=== PATIENT | female | born 1965 | race Caucasian/White ===

== ENCOUNTER → 2020-06-07 13:29 | Outpatient (CLI) | payer OTHER, SELFPAY ==
--- NOTE | ~2020-06-07 | DEXA_ITS ---
Bone Density Report Name: Aziza Medina Age: 55 Sex: Female Ethnicity: White Date of : 1965 Indication: postmenopausal; screening for osteoporosis; Referring Provider: GINGER, MARTHA Study: Bone densitometry was performed. Exam Date: June 07, 2020 Accession number: [id number] Bone Density: Region BMD T-score Z-score Classification AP Spine (L1-L4) 1.120 0.7 1.9 Normal Femoral Neck (Left) 0.840 -0.1 1.1 Normal Total Hip (Left) 0.965 0.2 1.0 Normal Femoral Neck (Right) 0.856 0.1 1.2 Normal Total Hip (Right) 0.978 0.3 1.1 Normal Total Hip Mean 0.972 0.3 1.1 Normal World Health Organization criteria for BMD impression classify patients as: Normal (T-score at or above -1.0), Osteopenia (T-score between -1.0 and -2.5), or Osteoporosis (T-score at or below -2.5). 10-year Fracture Risk: FRAX not reported because: All T-scores for Spine Total, Hip Total, Femoral Neck at or above -1.0 Previous Exams: Region Exam Age BMD T-score BMD Change BMD Change Date g/cm2 vs Baseline vs Previous AP Spine(L1-L4) 06/07/2020 55 1.120 0.7 -0.006 -0.006 03/26/2016 50 1.126 0.7 Total Hip(Left) 06/07/2020 55 0.965 0.2 0.021 0.021 03/26/2016 50 0.944 0.0 Total Hip(Right) 06/07/2020 55 0.978 0.3 -0.010 -0.010 03/26/2016 50 0.988 0.4 *Denotes significance at 95% confidence level, LSC for AP Spine = 0.022 g/cm2, LSC for Total Hip = 0.027 g/cm2 Clinical Information Provided by Patient: Has used the following medications: Vitamin D, MTV Patient maximum height was 64 No regular weight bearing exercise Does not regularly consume dairy products Drinks caffeinated beverages Onset of menses at age 9 Number of children 1 Impression: The patient has normal bone mass. No significant bone loss was observed. Discussion: BONE DENSITY IS ABOVE THE MINIMUM DESIRABLE LEVEL AT ALL SKELETAL SITES TESTED. This patient?s bone mineral density is above the minimum desirable level (T-score -1.0 or better) at all sites measured. The patient should follow a healthful lifestyle (good nutrition with adequate calcium and vitamin D, and appropriate weight-bearing exercise). Follow-Up: Consider repeating this study in 5 years or sooner if there is some new clinical indication. Reported by: ROBERTO on 06/07/2020 1:59:00 PM. Reviewed, dictated
--- NOTE | ~2020-06-07 | MM_ITS ---
EXAMINATION: MM screening dick BI w laure HISTORY: Screening mammogram TECHNIQUE: Craniocaudal and mediolateral oblique 3-D tomosynthesis images were obtained and synthetic 2-D images were generated. CAD analysis was submitted and interpreted. COMPARISON: 04/09/2018, 03/22/2016, 02/20/2015 bilateral digital screening mammogram examinations BREAST PARENCHYMAL COMPOSITION: There are scattered areas of fibroglandular density. FINDINGS: There is no evidence of suspicious mass, calcification, or architectural distortion to sug gest malignancy in either breast. There has been no suspicious interval change. IMPRESSION: 1. No mammographic evidence of malignancy. 2. Recommend routine screening mammography in one year. BI-RADS Category 1: Negative Reviewed, dictated and finalized at location A.
== END ==
PROVIDERS: Visit Provider Nurse Practitioner
DX: Z12.31 Encounter for screening mammogram for malignant neoplasm of breast (principal); Z78.0 Asymptomatic menopausal state
CPT/HCPCS: 77063; 77067; 77080

== ENCOUNTER 2021-01-23 00:16 | Day surgery (SDC) | payer OTHER, SELFPAY ==
[2021-01-08 15:48] VITALS: BMI 30.2
[2021-01-23 08:48] VITALS: BP 151/96; PULSE 118; RESP 18; TEMP 36.5; O2SAT 99; BMI 27.8
[2021-01-23] MEDS: LACTATED RINGERS 1,000 ML 150 ML IV CONT (09:15)
--- NOTE | 2021-01-23 09:41 | WPDANESEPPF ---
Anes - Initial Pre Proc Eval Procedure: Operation Date: 01/23/21 10:15 Proposed Procedures p Screening Colonoscopy - Bhavin Sandy MD Date/Time: 01/23/21 09:41 Surgeon: Bhavin Sandy MD Pre Op Diagnosis: neoplasm screening Patient Data Age: 55 Gender: F Height: 1.68 m Weight: 78.4 kg Last Vital Signs Temp 36.5 C 01/23/21 08:48 Pulse 118 H 01/23/21 08:48 Resp 18 01/23/21 08:48 BP 151/96 H 01/23/21 08:48 Pulse Ox 99 01/23/21 08:48 Allergies Allergy/AdvReac Type Severity Reaction Status Date / Time sesame oil Allergy Severe HIVES Verified 01/23/21 08:59 Home Medications Medication Instructions Recorded Confirmed Type B Complex 1 cap PO DAILY 01/08/21 01/23/21 History alprazolam 0.25 mg PO BID 01/08/21 01/23/21 History ascorbic acid (vitamin C) 500 mg PO DAILY 01/08/21 01/23/21 History atorvastatin 10 mg PO DAILY 01/08/21 01/23/21 History cetirizine 10 mg PO DAILY 01/08/21 01/23/21 History cholecalciferol (vitamin D3) 125 mcg PO DAILY 01/08/21 01/23/21 History [Vitamin D3] digestive enzymes 1 cap PO BID 01/08/21 01/23/21 History magnesium 500 mg PO BID 01/08/21 01/23/21 History sod picosulf-mag ox-citric ac 160 ml PO DAILY #160 ml 01/19/21 Rx [Clenpiq] sodium,potassium,mag sulfates See Rx Instructions .ROUTE 01/19/21 Rx [Suprep Bowel Prep Kit] .COMPLEX #1 pkg Patient hx anesthesia problems: none Family hx anesthesia problems: none Results Review: All pre-operative results and documents have been reviewed as part of the pre-operative evaluation. [facility] Past Medical History Medical History (Updated 01/23/21 @ 09:42 by Seth Acosta MD) Aftercare following surgery Mass on back Overweight Surgical History Surgical History (Updated 01/23/21 @ 09:42 by Seth Acosta MD) H/O colonoscopy History of carpal tunnel surgery Family History Family History Mother Diabetes mellitus Hypertension Family history of Parkinson's disease Family history of dementia Father Cerebrovascular accident Sibling Family history of malignant melanoma Family history of malignant neoplasm of cervix Other Family history of cardiovascular disease Social History Social History Smoking status: Never smoker Alcohol intake: current Substance use: never Substance use type: does not use Living arrangements: with family Spiritual care concerns: No Anes - Eval Final PreProcedure Day of Procedure 01/23/21 09:41 Patient weight: overweight Heart: regular rate and rhythm Lungs: clear to auscultation Airway: Mallampati scale class II Neurological: alert and oriented Last oral intake: >/= 8 hours ASA classification: II Emergent: no Anesthetic plan: proceed Anesthesia type and monitoring: general GIVS and standard monitoring Results Review: All pre-operative results and documents have been reviewed as part of the pre-operative evaluation. Informed Consent: The patient's anesthetic plan and its attendant risks and benefits were discussed with the patient/family/POA. Questions were solicited and answers provided to the satisfaction of the patient/family/POA.
--- NOTE | 2021-01-23 09:43 | WPDGICN ---
Assessment and Plan Assessment and plan (1) History of colon polyps: Code(s): Z86.010 - Personal history of colonic polyps Status: Acute Assessment and Plan: Patient has a personal history of colon polyps 5 years ago. For this reason surveillance exam recommended now on at least a 5 year intervals in the future. (2) Family history of colonic polyps: Code(s): Z83.71 - Family history of colonic polyps Status: Acute Assessment and Plan: Patient's family history is significant her father had colon polyps but she has many extended family members with colon cancer. Suggesting she has a familial trait. Plan is for colonoscopy at least every 5 years if not sooner for this reason. Further recommendations will be given after colonoscopy. GI Consult Note Consult date/time: 01/23/21 09:43 HPI: Aziza Urias is a 55 year old female Presents for screening colonoscopy. Patient reports that her current weight appetite bowel movements normal. She denies abdominal pain. She has had no bleeding. She has a very strong family history of colon polyps and cancer. Her father had colon polyps. She has an aunt and uncle with colon cancer as well as cousins. Patient herself had a colonoscopy 5 years ago that revealed colon polyps. She presents today for surveillance examination. Review of Systems Review of Systems: All systems reviewed & are unremarkable except as noted in HPI and below PMFSH Past Medical History Medical History (Updated 01/23/21 @ 09:45 by Bhavin Sandy MD) Aftercare following surgery Mass on back Overweight Surgical History Surgical History (Updated 01/23/21 @ 09:42 by Seth Acosta MD) H/O colonoscopy History of carpal tunnel surgery Family History Family History Mother Diabetes mellitus Hypertension Family history of Parkinson's disease Family history of dementia Father Cerebrovascular accident Sibling Family history of malignant melanoma Family history of malignant neoplasm of cervix Other Family history of cardiovascular disease Social History Social History Smoking status: Never smoker Alcohol intake: current Substance use: never Substance use type: does not use Living arrangements: with family Spiritual care concerns: No Meds Home Medications and Allergies Home Medications Medication Instructions Recorded Confirmed Type B Complex 1 cap PO DAILY 01/08/21 01/23/21 History alprazolam 0.25 mg PO BID 01/08/21 01/23/21 History ascorbic acid (vitamin C) 500 mg PO DAILY 01/08/21 01/23/21 History atorvastatin 10 mg PO DAILY 01/08/21 01/23/21 History cetirizine 10 mg PO DAILY 01/08/21 01/23/21 History cholecalciferol (vitamin D3) 125 mcg PO DAILY 01/08/21 01/23/21 History [Vitamin D3] digestive enzymes 1 cap PO BID 01/08/21 01/23/21 History magnesium 500 mg PO BID 01/08/21 01/23/21 History sod picosulf-mag ox-citric ac 160 ml PO DAILY #160 ml 01/19/21 Rx [Clenpiq] sodium,potassium,mag sulfates See Rx Instructions .ROUTE 01/19/21 Rx [Suprep Bowel Prep Kit] .COMPLEX #1 pkg Allergies Allergy/AdvReac Type Severity Reaction Status Date / Time sesame oil Allergy Severe HIVES Verified 01/23/21 08:59 Vital Signs Vital Signs - 24 hr 01/23/21 08:48 Temperature 97.7 F Pulse Rate 118 H Respiratory Rate 18 Blood Pressure 151/96 H Pulse Oximetry 99 Exam Narrative: Physical exam reveals patient to be alert. Vital signs stable. HEENT exam is unremarkable. Patient is anicteric. Lungs are clear to auscultation and percussion. Heart is without murmur or extra sounds. Abdominal exam bowel sounds are present soft nontender with no organomegaly. Digital external rectal exam is normal.
[2021-01-23 10:45] VITALS: BP 122/78; PULSE 103; RESP 27; O2SAT 98
[2021-01-23 10:55] VITALS: BP 121/85; PULSE 101; RESP 24; O2SAT 98
[2021-01-23 11:05] VITALS: BP 124/92; PULSE 96; RESP 24; O2SAT 98
== END 2021-01-23 11:21 | disposition home or self-care (01) ==
PROVIDERS: PCP Internal Medicine; Visit Provider Internal Medicine Gastroenterology
PROC: 0DJD8ZZ Inspection of Lower Intestinal Tract, Via Natural or Artificial Opening Endoscopic (ICD-10-PCS; CPT 45378; principal; 2021-01-23 10:15)
DX: Z12.11 Encounter for screening for malignant neoplasm of colon (principal); D12.2 Benign neoplasm of ascending colon; K64.8 Other hemorrhoids; Z80.0 Family history of malignant neoplasm of digestive organs; Z83.71 Family history of colonic polyps
CPT/HCPCS: 45380; 88305; J2704; J7120

== ENCOUNTER → 2021-06-11 15:15 | Outpatient (CLI) | payer OTHER, SELFPAY ==
--- NOTE | ~2021-06-11 | MM_ITS ---
EXAMINATION: MM screening dick BI w laure HISTORY: Screening mammogram TECHNIQUE: Craniocaudal and mediolateral oblique 3-D tomosynthesis images were obtained and synthetic 2-D images were generated. CAD analysis was submitted and interpreted. COMPARISON: , , 03/22/2016 bilateral screening mammogram examinations BREAST PARENCHYMAL COMPOSITION: There are scattered areas of fibroglandular density. FINDINGS: There is no evidence of suspicious mass, calcification, or architectural distortion to sugg est malignancy in either breast. There has been no suspicious interval change. IMPRESSION: 1. No mammographic evidence of malignancy. 2. Recommend routine screening mammography in one year. BI-RADS Category 1: Negative Reviewed, dictated and finalized at location A.
== END ==
PROVIDERS: PCP Internal Medicine; Visit Provider Nurse Practitioner
DX: Z12.31 Encounter for screening mammogram for malignant neoplasm of breast (principal)
CPT/HCPCS: 77063; 77067

== ENCOUNTER → 2022-09-11 14:14 | Outpatient (CLI) | payer OTHER, SELFPAY ==
--- NOTE | ~2022-09-11 | MM_ITS ---
EXAMINATION: MM screening dick BI w laure HISTORY: Screening mammogram TECHNIQUE: Craniocaudal and mediolateral oblique 3-D tomosynthesis images were obtained and synthetic 2-D images were generated. CAD analysis was submitted and interpreted. COMPARISON: No prior mammogram is available for comparison at this institution. BREAST PARENCHYMAL COMPOSITION: There are scattered areas of fibroglandular density. FINDINGS: There is no evidence of suspicious mass, calcification, or architectural distortion to sugg est malignancy in either breast. There has been no suspicious interval change. IMPRESSION: 1. No mammographic evidence of malignancy. 2. Recommend routine screening mammography in one year. BI-RADS Category 1: Negative Reviewed, dictated and finalized at location A.
== END ==
PROVIDERS: PCP Nurse Practitioner; Visit Provider Nurse Practitioner
DX: Z12.31 Encounter for screening mammogram for malignant neoplasm of breast (principal)
CPT/HCPCS: 77063; 77067

== ENCOUNTER 2023-09-15 07:29 | Outpatient (CLI) | payer OTHER, SELFPAY ==
--- NOTE | ~2023-09-15 | MM_ITS ---
EXAMINATION: MM screening dick BI w laure HISTORY: Screening TECHNIQUE: Craniocaudal and mediolateral oblique 3-D tomosynthesis images were obtained and synthetic 2-D images were generated. CAD analysis was submitted and interpreted. COMPARISON: Comparison to multiple prior studies sequentially, with oldest reviewed study dated 02/01. BREAST PARENCHYMAL COMPOSITION: Not dense: There are scattered areas of fibroglandular density. FINDINGS: There is no evidence of suspicious mass, calcification, or architectural distortion to sugg est malignancy in either breast. There has been no suspicious interval change. IMPRESSION: 1. No mammographic evidence of malignancy. 2. Recommend routine screening mammography in one year. BI-RADS Category 1: Negative Reviewed, dictated and finalized at location B.
== END 2023-09-15 07:30 ==
PROVIDERS: PCP Nurse Practitioner; Visit Provider Nurse Practitioner
DX: Z12.31 Encounter for screening mammogram for malignant neoplasm of breast (principal)
CPT/HCPCS: 77063; 77067

== ENCOUNTER 2023-12-31 15:39 | Outpatient (CLI) | payer OTHER, SELFPAY ==
--- NOTE | ~2023-12-31 | XR_ITS ---
EXAMINATION: XR chest 2V Exam Date/Time: 12/31/2023 15:55 CDT HISTORY: Persistent cough Comparison: None. RESULT: Lines, tubes, and devices: None. Lungs and pleura: Minimal right posterior costophrenic angle blunting, otherwise clear. Cardiomediastinal silhouette: Stable. Other: No acute osseous or upper abdominal finding. IMPRESSION: Trace right pleural fluid collection versus chronic pleural blunting. Reviewed, dictated and finalized at location K.
== END 2023-12-31 15:40 | disposition home or self-care (01) ==
LOC: CHSIMG 15:42
PROVIDERS: PCP Internal Medicine; Visit Provider Internal Medicine
DX: R05.9 Cough, unspecified (principal); R91.8 Other nonspecific abnormal finding of lung field
CPT/HCPCS: 71046

== ENCOUNTER 2024-09-29 12:21 | Outpatient (CLI) | payer OTHER, SELFPAY ==
--- NOTE | ~2024-09-29 | MM_ITS ---
EXAMINATION: MM screening dick BI w laure HISTORY: Screening TECHNIQUE: Craniocaudal and mediolateral oblique 3-D tomosynthesis images were obtained and synthetic 2-D images were generated. CAD analysis was submitted and interpreted. COMPARISON: Comparison to multiple prior studies sequentially, with oldest reviewed study dated 03/26. BREAST PARENCHYMAL COMPOSITION: Not dense: There are scattered areas of fibroglandular density. FINDINGS: There is no evidence of suspicious mass, calcification, or architectural distortion to sugg est malignancy in either breast. There has been no suspicious interval change. IMPRESSION: 1. No mammographic evidence of malignancy. 2. Recommend routine screening mammography in one year. BI-RADS Category 1: Negative Reviewed, dictated and finalized at location B.
--- NOTE | ~2024-09-29 | DEXA_ITS ---
Bone Density Report Name: ANAHI GANN Age: 59 Sex: Female Ethnicity: White Date of : 1965 Indication: postmenopausal; screening for osteoporosis; height loss; Referring Provider: GINGER, MARTHA Study: Bone densitometry was performed. Exam Date: September 29, 2024 Accession number: [id number] Bone Density: Region BMD T-score Z-score Classification AP Spine(L1-L4) 1.067 0.2 1.7 Normal Femoral Neck (Left) 0.805 -0.4 0.9 Normal Total Hip (Left) 0.922 -0.2 0.9 Normal Femoral Neck (Right) 0.793 -0.5 0.8 Normal Total Hip (Right) 0.926 -0.1 0.9 Normal Total Hip Mean 0.924 -0.2 0.9 Normal World Health Organization criteria for BMD impression classify patients as: Normal (T-score at or above -1.0), Osteopenia (T-score between -1.0 and -2.5), or Osteoporosis (T-score at or below -2.5). 10-year Fracture Risk: FRAX not reported because: All T-scores for Spine Total, Hip Total, Femoral Neck at or above -1.0 Previous Exams: -- Region Exam Age BMD T-score BMD Change BMD Change Date g/cm2 vs Baseline vs Previous -- AP Spine (L1-L4) 09/29/2024 59 1.067 0.2 -5.3%* -4.7%* 06/07/2020 55 1.120 0.7 -0.6% -0.6% 03/26/2016 50 1.126 0.7 Total Hip(Left) 09/29/2024 59 0.922 -0.2 -2.3% -4.4%* 06/07/2020 55 0.965 0.2 2.2% 2.2% 03/26/2016 50 0.944 0.0 Total Hip(Right) 09/29/2024 59 0.926 -0.1 -6.3%* -5.3%* 06/07/2020 55 0.978 0.3 -1.0% -1.0% 03/26/2016 50 0.988 0.4 -- *Denotes significance at 95% confidence level, LSC for AP Spine = 0.022 g/cm2, LSC for Total Hip = 0.027 g/cm2 Clinical Information Provided by Patient: Has used the following medications: Vitamin D Patient maximum height was 66 Menopause Age: 38 Drinks caffeinated beverages Onset of menses at age 10 Number of children 1 Missed period for more than 6 months in a row Impression: The patient has normal bone mass. The BMD for the AP Spine (L1-L4) decreased, changing by -4.7% since the last DXA exam. The BMD for the Total Hip(Left) decreased, changing by -4.4% since the last DXA exam. The BMD for the Total Hip(Right) decreased, changing by -5.3% since the last DXA exam. Discussion: BONE DENSITY IS ABOVE THE MINIMUM DESIRABLE LEVEL AT ALL SKELETAL SITES TESTED. This patient?s bone mineral density is above the minimum desirable level (T-score -1.0 or better) at all sites measured. The patient should follow a healthful lifestyle (good nutrition with adequate calcium and vitamin D, and appropriate weight-bearing exercise). Follow-Up: Consider repeating this study in 3 to 4 years to reassess this patient's status, or sooner if there is some new clinical indication. Reported by: MYRANDA on 09/29/2024 12:51:00 PM. Reviewed, dictated and finalized at location A.
== END 2024-09-29 12:22 | disposition home or self-care (01) ==
PROVIDERS: PCP Internal Medicine; Visit Provider Nurse Practitioner
DX: Z12.31 Encounter for screening mammogram for malignant neoplasm of breast (principal); Z78.0 Asymptomatic menopausal state
CPT/HCPCS: 77063; 77067; 77080